=== PATIENT | female | born 1975 | race Hispanic/Latino ===

== ENCOUNTER → 2024-12-13 12:46 | Outpatient (REF) | payer OTHER, SELFPAY | LOC: WDC 12:46 | PROVIDERS: ATTENDING PHYSICIAN Emergency Medicine | DX: Z12.31 Encounter for screening mammogram for malignant neoplasm of breast (principal); R07.9 Chest pain, unspecified; R20.2 Paresthesia of skin; M79.641 Pain in right hand; M79.642 Pain in left hand | CPT/HCPCS: 71046; 72052; 73130; 77063; 77067 ==

== ENCOUNTER → 2025-03-14 11:53 | Outpatient (REF) | payer OTHER, SELFPAY | LOC: RAD 11:53 | PROVIDERS: ATTENDING PHYSICIAN Nurse Practitioner Family | DX: M79.671 Pain in right foot (principal) | CPT/HCPCS: 73630 ==

== ENCOUNTER → 2025-04-20 07:44 | Outpatient (REF) | payer OTHER, SELFPAY | LOC: HWRAD 07:44 | PROVIDERS: FAMILY PHYSICIAN Nurse Practitioner Family | DX: R10.20 Pelvic and perineal pain unspecified side (principal); D25.1 Intramural leiomyoma of uterus | CPT/HCPCS: 76830; 76856 ==

== ENCOUNTER → 2025-06-08 09:58 | Outpatient (REF) | payer OTHER, SELFPAY | LOC: WDC 09:58 | PROVIDERS: ATTENDING PHYSICIAN Nurse Practitioner Family | DX: R92.30 Dense breasts, unspecified (principal) | CPT/HCPCS: 76641 ==